=== PATIENT | female | born 1970 | race Caucasian/White ===

== ENCOUNTER 2020-06-12 02:36 | Outpatient (CLI) | payer MEDICAID, SELFPAY ==
[2020-06-13 13:17] LABS: COVID-19 RT-PCR UVMMC Result Negative (Negative)
== END 2020-06-12 02:37 | disposition home or self-care (01) ==
PROVIDERS: PCP Nurse Practitioner Family; Visit Provider Ophthalmology Retina Specialist
DX: Z20.822 Contact with and (suspected) exposure to COVID-19 (principal); Z01.818 Encounter for other preprocedural examination
CPT/HCPCS: U0003

== ENCOUNTER 2020-08-25 13:04 | Outpatient (REF) | payer MEDICAID, SELFPAY ==
[2020-08-25 16:36] LABS: HCT 42.3 % (36.0-46.0); HGB 14.7 g/dL (11.2-15.7); MCH 29.5 pg (27.0-33.0); MCHC 34.8 % (32.0-36.0); MCV 84.9 fL (80-95); Platelet Count 350 10^3/uL (130-400); RBC 4.98 10^6/uL (3.93-5.22); RDW 13.2 % (11.7-14.6); WBC 6.96 10^3/uL (4.4-10.8)
[2020-08-25 17:08] LABS: ALT 20 U/L (14-59); AST 14 U/L (15-37); Albumin 3.6 g/dL (3.4-5.0); Alkaline Phosphatase 86 U/L (46-116); Anion Gap 9.9 mmol/L (3-11); BUN 8 mg/dL (7-18); Bilirubin, Total 0.4 mg/dL (0.2-1.0); CO2 26.1 mmol/L (21.0-32.0); CREATININE 0.9 mg/dL (0.55-1.02); Calcium 9.1 mg/dL (8.5-10.1); Calculated LDL 129 mg/dL (<100); Chloride 105 mmol/L (98-107); Cholesterol 225 mg/dL (<200); Glucose 90 mg/dL (74-106); HDL Cholesterol 52 mg/dL (40-60); Potassium 4.5 mmol/L (3.5-5.1); Sodium 141 mmol/L (136-145); Total Protein 7.1 g/dL (6.4-8.2); Triglyceride 224 mg/dL (<150)
== END 2020-08-25 13:05 | disposition home or self-care (01) ==
LOC: NCHCN 13:04
PROVIDERS: PCP Nurse Practitioner Family; Visit Provider Nurse Practitioner Family
DX: Z13.0 Encounter for screening for diseases of the blood and blood-forming organs and certain disorders involving the immune mechanism (principal); Z13.228 Encounter for screening for other metabolic disorders; Z13.220 Encounter for screening for lipoid disorders; Z00.00 Encounter for general adult medical examination without abnormal findings
CPT/HCPCS: 80053; 80061; 85027

== ENCOUNTER 2020-08-29 16:18 | Outpatient (REF) | payer MEDICAID, SELFPAY ==
--- NOTE | 2020-08-29 15:15 | PAPFT_PTH ---
PATIENT: Essence Soliman LOC: [facility]#:[id number] AGE/SX: 50/F ROOM: RE08/29/[address]: Leyla Childers : 1970 BED: DIS: 08/29/2020 SPEC #: [id number] RECD: 09/01/20 13:15 STATUS: VICKEY RECuco #: [id number] RICARDO: 08/29/20 15:[address]: Leyla Childers DEPT: [facility] Cytology RECD BY: Lanny Berger Tissues: 1 - CX/ENDOCX FOR PAP SMEARS Procedures: PAP THIN PREP/[facility] Screening HPV DNA PROBE Comments: [id number]
== END 2020-08-29 16:19 | disposition home or self-care (01) ==
LOC: NCHCN 16:18
PROVIDERS: PCP Nurse Practitioner Family; Visit Provider Nurse Practitioner Family
DX: Z12.4 Encounter for screening for malignant neoplasm of cervix (principal); Z11.51 Encounter for screening for human papillomavirus (HPV); Z00.00 Encounter for general adult medical examination without abnormal findings
CPT/HCPCS: 88142; 87624